=== PATIENT | male | born 1970 | race African-American/Black ===

== ENCOUNTER 2021-02-07 00:59 | Emergency (ER) | payer BC, OTHER ==
[~2021-02-07 00:59] MED LIST: ZITHROMAX250 MG PO
[2021-02-07] MEDS ORDERED: IBUPROFEN600 MG PO (01:55)
[2021-02-07] MEDS ORDERED: FLONASE 0.05% N16 GM (01:55)
[2021-02-07] MEDS ORDERED: ZYRTEC10 MG PO (01:55)
[2021-02-07] MEDS ORDERED: Viscous lidocaine2% PO (01:55)
== END 2021-02-07 02:30 | disposition home or self-care (01) ==
LOC: ER1 00:59
DX: K08.89 Other specified disorders of teeth and supporting structures (principal); R51.9 Headache, unspecified; I10 Essential (primary) hypertension; F17.210 Nicotine dependence, cigarettes, uncomplicated; Z91.013 Allergy to seafood
CPT/HCPCS: 99282; J1885